=== PATIENT | female | born 1990 | race Caucasian/White ===

== ENCOUNTER 2017-09-25 01:52 | Emergency (ER) | payer OTHER ==
[2017-09-25] MEDS ORDERED: NS 0.9% 1000 ML* 2,000 ML IV ONE (03:20)
[2017-09-25] MEDS ORDERED: Ondansetron INJ* 2 MG/ML VIAL IV ONE (03:20)
[2017-09-25] MEDS ORDERED: Ketorolac INJ* 30 MG/ML 1 ML VIAL IV ONE (03:20)
[2017-09-25 03:38] LABS: ABS Basophils 0.1 10^3/ul (0-0.2); ABS Eosinophils 0 10^3/ul (0-0.6); ABS Lymphocytes 2.8 10^3/ul (1.0-4.8); ABS Neutrophils 7.2 10^3/ul (1.5-7.7); ABS Nucleated RBC 0 10^3/ul; Eosinophil % 0.4 % (0-6); Hematocrit 37 % (35-47); Hemoglobin 12.4 g/dl (12.0-16.0); Lymphocyte % 25.4 % (25-47); Mean Corpuscular HGB Conc 34 g/dl (31-36); Mean Corpuscular Hemoglobin 31 pg (27-31); Mean Corpuscular Volume 91 fL (80-97); Mean Platelet Volume 8 um3 (7.4-10.4); Nucleated Red Blood Cells % 0; Platelet Count 246 10^3/ul (150-450); Red Blood Count 4.05 10^6/ul (4.0-5.4); Red Cell Distribution Width 13 % (10.5-15); White Blood Count 11.1 10^3/ul (3.5-10.8)
[2017-09-25 03:50] LABS: INR 1.04 (0.77-1.02)
[2017-09-25 03:53] LABS: EGFR Non-African American 85.5 (>60)
[2017-09-25 06:22] LABS: Urine Appearance Clear; Urine Blood 1+ (Negative); Urine Color Yellow; Urine Ketones 1+ (Negative); Urine Protein Negative (Negative); Urine Specific Gravity 1.021 (1.010-1.030); Urine Urobilinogen Negative (Negative)
--- NOTE | 2017-09-25 07:21 | ED ---
Liban Christina Nilda, scribed for Talib Mason MD on 09/25/17 at 0356 . GI/ HPI - HPI Summary HPI Summary: This patient is a 27 year old F presenting to [facility] with a chief complaint of constant severe sharp right flank pain since yesterday. The patient rates the pain 8/10 in severity at its worse and current pain while at rest 4/10. Symptoms aggravated by movement and alleviated by position. Patient reports vomiting (since last night with all PO intake), chills, and no BM for the past 2 -3 days. Patient denies dysuria, hematuria, fever, and vaginal discharge. For the past week pt has been treated for what she thought was a UTI with abx of Bactrim and Cipro with minimal relief. No PSHx in abd. PMHx includes kidney stone. Pt states symptoms are similar to previous episode of kidney stone. NKDA. - History of Current Complaint Chief Complaint: EDFlankPain Time Seen by Provider: 09/25/17 03:16 Stated Complaint: FLANK PAIN Hx Obtained From: Patient Onset/Duration: Started Days Ago, Still Present Timing: Constant Severity: Severe Current Severity: Moderate Pain Intensity: 8 - at worst Location of Pain: Flank - right Pain Characteristics: Sharp Associated Signs and Symptoms: Positive: Other: - vomiting (since last night with all PO intake), chills, and no BM for the past 2-3 days. Patient denies dysuria, hematuria, fever, and vaginal discharge Aggravating Factor(s): Movement Alleviating Factor(s): Position - Allergy/Home Medications Allergies/Adverse Reactions: Allergies Allergy/AdvReac Type Severity Reaction Status Date / Time No Known Allergies Allergy Verified 09/25/17 01:56 PMH/Surg Hx/FS Hx/Imm Hx History: Reports: Hx Kidney Stones Sensory History: Denies: Hx Legally Blind EENT History: Denies: Hx Deafness Infectious Disease History: No Infectious Disease History: Denies: Traveled Outside the [place] in Last 30 Days - Family History Known Family History: Positive: Diabetes - Social History Alcohol Use: Occasionally Substance Use Type: Reports: None Smoking Status (MU): Never Smoked Tobacco Review of Systems Positive: Chills. Negative: Fever Positive: Vomiting, Other - no BM for the past 2-3 days Positive: flank pain - right. Negative: dysuria, discharge, hematuria All Other Systems Reviewed And Are Negative: Yes Physical Exam - Summary Physical Exam Summary: General: well-appearing, no pain distress Skin: warm, color reflects adequate perfusion, dry Head: normal Eyes: EOMI, BENJAMIN ENT: normal Neck: supple, nontender Respiratory: CTA, breath sounds present Cardiovascular: RRR Abdomen: soft, tender to percussion on right flank, right abd tender to palpation Bowel sounds: present Musculoskeletal: normal, strength/ROM intact Neurological: normal, sensory/motor intact, A&O x3 Psychological: affect/mood appropriate Triage Information Reviewed: Yes Vital Signs On Initial Exam: Initial Vitals Temp Pulse Resp BP Pulse Ox 97.8 F 107 20 123/77 96 09/25/17 01:53 09/25/17 01:53 09/25/17 01:53 09/25/17 01:53 09/25/17 01:53 Vital Signs Reviewed: Yes Diagnostics - Vital Signs Vital Signs Temp Pulse Resp BP Pulse Ox 09/25/17 01:53 97.8 F 107 20 123/77 96 - Laboratory Lab Results: Lab Results 09/25/17 Range/Units 03:30 WBC 11.1 H (3.5-10.8) 10^3/ul RBC 4.05 (4.0-5.4) 10^6/ul Hgb 12.4 (12.0-16.0) g/dl Hct 37 (35-47) % MCV 91 (80-97) fL MCH 31 (27-31) pg MCHC 34 (31-36) g/dl RDW 13 (10.5-15) % Plt Count 246 (150-450) 10^3/ul MPV 8 (7.4-10.4) um3 Neut % (Auto) 64.9 (38-83) % Lymph % (Auto) 25.4 (25-47) % Turner % (Auto) 8.7 (1-9) % Eos % (Auto) 0.4 (0-6) % Baso % (Auto) 0.6 (0-2) % Absolute Neuts (auto) 7.2 (1.5-7.7) 10^3/ul Absolute Lymphs (auto) 2.8 (1.0-4.8) 10^3/ul Absolute Monos (auto) 1.0 H (0-0.8) 10^3/ul Absolute Eos (auto) 0 (0-0.6) 10^3/ul Absolute Basos (auto) 0.1 (0-0.2) 10^3/ul Absolute Nucleated RBC 0 10^3/ul Nucleated RBC % 0 Result Diagrams: 09/25/17 03:30 09/25/17 03:30 Lab Statement: Any lab studies that have been ordered have been reviewed, and results considered in the medical decision making process. - CT Abd/Pel CT Interpretation Completed By: Radiologist - CT Abd/Pel, per radiologist, reveals small bilateral nonobstructing renal stones. Dr. Mason has reviewed this radiology report. Re-Evaluation - Re-Evaluation First Eval Re-Evaluation Time: 07:07 Comment: Pain improved. Reviewed labs and imaging with patient. GIGU Course/Dx - Course Assessment/Plan: This patient is a 27 year old F presenting to [facility] with a chief complaint of constant severe sharp right flank pain since yesterday. The patient rates the pain 8/10 in severity at its worse and current pain while at rest 4/10. Symptoms aggravated by movement and alleviated by position. Patient reports vomiting (since last night with all PO intake), chills, and no BM for the past 2-3 days. Patient denies dysuria, hematuria, fever, and vaginal discharge. For the past week pt has been treated for what she thought was a UTI with abx of Bactrim and Cipro with minimal relief. No PSHx in abd. PMHx includes kidney stone. Pt states symptoms are similar to previous episode of kidney stone. NKDA. Medications reviewed. BP noted and advised to follow up with PCP. CT Abd/Pel, per radiologist, reveals small bilateral nonobstructing renal stones. Dr. Mason has reviewed this radiology report. DISCUSSED RESULTS WITH PATIENT. F/U WITH PMD/UROLOGY; RETURN IF WORSE. - Diagnoses Provider Diagnoses: Blood pressure elevated without history of HTN, Abdominal pain, Flank pain, Kidney stones Discharge - Discharge Plan Condition: Stable Disposition: HOME Patient Education Materials: Kidney Stones (ED), Acute Abdominal Pain (DC), Flank Pain (ED) Referrals: [facility] [place] PHYSICIAN REFERRAL [Outside] Additional Instructions: FOLLOW UP WITH YOUR DOCTOR. RETURN TO THE EMERGENCY DEPARTMENT FOR ANY WORSENING OF YOUR CONDITION OR QUESTIONS OR CONCERNS. Your blood pressure was elevated during todays visit; please follow up with your primary care provider within a week for further evaluation. The documentation as recorded by the Liban maurer Nilda accurately reflects the service I personally performed and the decisions made by me, Talib Mason MD.
--- NOTE | 2017-09-25 08:18 | RAD ---
CLINICAL HISTORY: Right flank pain, right lower quadrant pain COMPARISON: None TECHNIQUE: Multiple contiguous axial CT scans were obtained of the abdomen and pelvis after the administration of intravenous contrast. Coronal and sagittal multiplanar reformations are submitted for review. FINDINGS: LUNG BASES: There is a 0.4 cm nodule in the periphery of the left lower lobe. LIVER: The liver is normal in shape, size, contour, and attenuation. BILE DUCTS: There is no intrahepatic or extrahepatic biliary dilatation. GALLBLADDER: The gallbladder is normal, without pericholecystic inflammatory change. PANCREAS: The pancreas is normal, without mass or ductal dilatation. SPLEEN: Normal in size and appearance. UPPER GI TRACT: Evaluation of the gastrointestinal tract is limited by incomplete gastric distention. The upper GI tract is unremarkable. SMALL BOWEL AND MESENTERY: The small bowel is normal in contour, course, and caliber. There is no obstruction or dilatation. COLON: The colon is normal in contour, course, caliber. There is no pericolonic inflammatory change. There is a tubular, vermiform, hollow viscus that is blind ending, and originates from the cecum, consistent with a normal appendix. There is no periappendiceal inflammatory change. This is best seen on axial images 90 through 117. ADRENALS: Normal bilaterally. KIDNEYS: There are bilateral renal calyceal stones measuring up to 0.3 cm in size. There is a 0.3 cm left UVJ stone. There is no appreciable hydronephrosis. BLADDER: As noted above, there is a small left UVJ stone. PELVIC ORGANS: The uterus and adnexa are grossly normal for technique. AORTA: The aorta is normal. IVC: Unremarkable LYMPH NODES: There is no lymphadenopathy by size criteria. ABDOMINAL WALL: There is no evidence for abdominal wall hernia. BONES AND SOFT TISSUES: There is partial resolution of the S1 vertebral body. OTHER: None IMPRESSION: 1. BILATERAL NONOBSTRUCTING RENAL STONES, INCLUDING A SMALL LEFT UVJ STONE. THERE IS NO APPRECIABLE HYDRONEPHROSIS. 2. 0.4 CM NODULE OF THE LEFT LOWER LOBE. IN THE ABSENCE OF A HISTORY OF MALIGNANCY, IN PATIENTS UNDER 30 YEARS OF AGE, FURTHER EVALUATION SHOULD BE BASED ON CLINICAL SUSPICION. 3. NORMAL APPENDIX
--- NOTE | 2017-09-25 08:50 | RAD ---
Indication: Lower abdominal pain. Real-time sonography of the pelvis was performed utilizing endovaginal technique. The uterus measures 6.8 x 3.0 x 3.7 cm. Endometrial echo measures 2 mm. Right ovary measures 2.2 x 1.1 x 2.5 cm. Left ovary measures 4.0 x 2.0 x 2.6 cm with a cyst in the left ovary measuring 3.0 x 1.7 x 2.4 cm. IMPRESSION: Left ovarian cyst measuring 3.0 x 1.7 x 2.4 cm.
[2017-09-25 09:02] VITALS: BP 110/59
--- NOTE | 2017-09-25 12:47 | ED ---
Progress - Progress Note Progress Note: Patient's CT scan report re-read by our radiologist this morning reveals a "0.4 cm nodule of the left lower lobe. In the absence of a history of malignancy, in patients under 30 years of age, further evaluation should be based on clinical suspicion." Contacted patient to notify her of these findings as she was not notified earlier today at her visit. She reports she does not have a primary care physician as she is between [place] and [facility] for work however she does agree to obtain her CD of her CT scan with report from medical records today. She also agrees to establish with a PCP either in [place] or [facility] pending her schedule this week as soon as possible for follow-up and consult as needed. Discussed that if she develops chest pain, shortness of breath, cough, bloody cough, back pain, fevers, chills, night sweats, nausea, vomiting, diarrhea she will return to the emergency department. Patient agrees with plan. Re-Evaluation - Re-Evaluation First Eval Re-Evaluation Time: 07:07 Comment: Pain improved. Reviewed labs and imaging with patient. Course/Dx - Diagnoses Provider Diagnoses: Kidney stones, Ovarian cyst
--- NOTE | 2017-09-26 18:17 | ED ---
Jerardo Christina Angela, scribed for Jone Richmond MD on 09/25/17 at 0924 . Progress - Progress Note Progress Note: This pt was signed out by Dr. Mason, pending disposition, awaiting transvaginal US. Transvaginal US, as read by radiologist IMPRESSION: Left ovarian cyst measuring 3.0 x 1.[address] Richmond has reviewed this radiology report. Pt was signed out by Dr. Mason to follow up on the transvaginal US results. He recommends that if the ultrasound is negative the pt can be discharged home. US shows left ovarian cyst measuring 3.0 x 1.7 x 2.4 cm. As per recommendation of Dr. Mason, pt will be discharged to home with follow up from ObGyn and urologist. Pt is hemodynamically stable, alert and oriented x3. Pt will be discharged to home, in stable condition, with a diagnosis of kidney stones and ovarian cyst. Condition: Stable Disposition: Home. Pt will be discharged to home, in stable condition, with a diagnosis of kidney stones and ovarian cyst. Re-Evaluation - Re-Evaluation First Eval Re-Evaluation Time: 07:07 Comment: Pain improved. Reviewed labs and imaging with patient. Course/Dx - Diagnoses Provider Diagnoses: Kidney stones, Ovarian cyst The documentation as recorded by the Jerardo maurer Angela accurately reflects the service I personally performed and the decisions made by , Jone Richmond MD.
== END 2017-09-25 09:01 | disposition home or self-care (01) ==
LOC: ED 01:52
DX: N20.0 Calculus of kidney (principal); R10.84 Generalized abdominal pain; N83.209 Unspecified ovarian cyst, unspecified side; R11.10 Vomiting, unspecified
CPT/HCPCS: 36415; 74176; 76830; 80053; 81003; 81015; 83605; 83690; 84702; 85025; 85610; 85730; 86140; 96374; 96375; 99282; J1885; J2405